=== PATIENT | female | born 1940 | race Caucasian/White ===

== ENCOUNTER 2022-06-01 15:47 | Outpatient (CLI) | payer MEDICARE, BC ==
[~2022-06-01 15:47] MED LIST: Iopamidol 370 76% 100 ML VIAL ONE
== END 2022-06-01 15:48 | disposition home or self-care (01) ==
LOC: BICCT 15:47
PROVIDERS: ATTEND Family Medicine
DX: I10 Essential (primary) hypertension (principal); R10.13 Epigastric pain; R05.3 Chronic cough
CPT/HCPCS: 71260; 74160; 82565; Q9967